=== PATIENT | female | born 1990 | race Caucasian/White ===

== ENCOUNTER 2019-02-22 09:39 | Emergency (ER) | payer OTHER ==
[2019-02-22] MEDS ORDERED: Fentanyl 100 MCG/2 ML VIAL ONE (10:02)
--- NOTE | 2019-02-22 10:08 | RAD ---
EXAM: Right shoulder: 3 views INDICATIONS: Injury COMPARISON: None. FINDINGS: Anterior dislocation of the right humeral head. No evidence of fracture. IMPRESSION: Anterior shoulder dislocation
--- NOTE | 2019-02-22 10:38 | RAD ---
EXAM: Right shoulder: 2 views INDICATIONS: Post reduction COMPARISON: Prereduction films FINDINGS: Persistent anterior shoulder dislocation IMPRESSION: Anterior shoulder dislocation
[2019-02-22] MEDS ORDERED: Ketamine 50 MG/ML (10ML VIAL) ONE (10:51)
--- NOTE | 2019-02-22 11:51 | RAD ---
Radiograph right shoulder 3 views: DATE: 02/22/2019 Time: 11:28 AM HISTORY: 28-year-old female status post second attempt at reduction of anterior shoulder dislocation. COMPARISON: 02/22/2019 at 10:32 AM FINDINGS: The glenohumeral joint is now located. No evidence of acute fracture. Hill-Sachs defect at the latera l aspect of humeral head. IMPRESSION: 1. Successful reduction of acute anterior shoulder dislocation. 2. Hill-Sachs defect suggests prior anterior shoulder dislocations.
== END 2019-02-22 12:24 ==
LOC: EEVIPCON 09:39 → ERS 09:39
DX: S43.014A Anterior dislocation of right humerus, initial encounter (principal); X50.9XXA Other and unspecified overexertion or strenuous movements or postures, initial encounter
CPT/HCPCS: 23650; 96374; 99152; J3010